=== PATIENT | male | born 1960 | race Caucasian/White ===

== ENCOUNTER 2019-05-28 15:07 | Emergency (ER) | payer BC, SELFPAY ==
[2019-05-28 15:11] VITALS: BP 138/89; PULSE 94; RESP 18; TEMP 37.4; O2SAT 98
--- NOTE | 2019-05-28 15:17 | W.ED.GENAD ---
Discharge Plan Disposition Patient Disposition: HOME Condition: Fair Discharge Details Chief Complaint: EyeProblem Clinical Impression: Conjunctivitis ED Provider: Lourdes John Home Meds and New Rx's Prescriptions: No Action No Known Home Meds RF: 0 Discharge Instructions Instructions: Erythromycin (Into the eye), Conjunctivitis (ED) Additional Instructions: Encourage hydration. Please apply half an inch of the erythromycin ointment to the right eye 5 times daily for the next 5 days. If you develop fever/chills, visual change, increased pain, redness around the eye or the new/worsening symptoms please seek care urgently once again. Otherwise, please follow-up with primary care in 1 week if not improving. All Medical Decision Making Patient is 58-year-old male chief complaint of discharge and swelling to the right eye. Denies any pain in the eye but feels that it is swollen. Denies any visual changes. States that the course the day, he has noted more and more purulent discharge from the eye and increased swelling, particularly lower lid. Denies any fevers or chills. No periorbital tenderness, no periorbital erythema, extra ocular movements are intact without discomfort. Pupils are equal round and reactive. No previous surgeries to the eye. Patient is not wearing contacts or corrective lenses. Findings are most concerning for bacterial conjunctivitis. Patient be treated with erythromycin ointment. He was given return precautions. He lives in [place] but is returning next week, advised that he follow-up there for reevaluation any symptoms persist. All questions and concerns were addressed and he is in agreement this plan. HPI General Mode of arrival: ambulatory. Date/Time Provider Initiated Documentation: 05/28/19 15:11. Limitations to Documentation: no limitations. Information obtained by: patient, family and RN notes reviewed. History of Present Illness 58 year old M presents to the emergency department with the chief complaint of right eye swelling and discharge, described as mild, with intensity rated at 2. Quality is described as aching, and is localized to the eyes. Patient reports no radiation. Patient started experiencing this hour(s) and it has been constant. No relieving factors improve symptom(s), No exacerbating factors reported . Patient notes no other symptoms.. Patient did receive the following treatments prior to arrival, none Related Data Home Medications Medication Instructions Recorded Confirmed Unknown [No Known Home Meds] 05/28/19 05/28/19 Allergies Allergy/AdvReac Type Severity Reaction Status Date / Time No Known Allergies Allergy Unverified 05/28/19 15:15 General Stated Complaint: EyeProblem GREG: 4 Review of Systems Constitutional Constitutional: Reports as per HPI, Denies chills, Denies fatigue, Denies fever(s) and Denies headache(s) Eyes Eyes: Reports as per HPI ENT Ears, Nose, Mouth, and Throat: Denies headache(s) Cardiovascular Cardiovascular: Reports as per HPI, Denies chest pain and Denies lightheadedness Respiratory Respiratory: Denies cough Integumentary/Breasts Skin/Breast: Reports as per HPI, Denies rash, Denies skin pain and Denies skin swelling Neurologic Neurologic: Denies headache(s) and Denies radicular pain Endocrine Endocrine: Denies fatigue PFSH Social History Smoking/Tobacco Use Status: Never Substance use type: does not use Do you feel safe at home: Yes Do you feel safe in your relationship?: Yes Exam Const General: cooperative, healthy appearing, comfortable, no acute distress, well developed and well groomed Nutritional Appearance: average body habitus and well nourished Orientation: alert, awake and oriented x3 HENMT Head: normal to inspection, normocephalic and atraumatic Ears: hearing grossly normal bilaterally and external ears normal General nose exam: external nose normal and nares normal Face and sinus: normal facial exam and face symmetric Mouth: oral mucosae normal, lip normal and moist mucous membranes Eyes Visual Locke: normal visual locke by confrontation Alignment and Position: alignment normal and position normal Periorbital: periorbital findings normal Eyelids: eyelid abnormality right lower eyelid swelling; without inflamed cyst, ectropion, without entropion, without erythema, without foreign bodies, without lacerations, no crusting or scaling of lid margins and nontender Conjunctivae: conjunctival abnormality right conjunctival injection diffuse and discharge purulent Sclera: sclerae normal Pupils: PERRL, normal by confrontation and accommodation normal EOM: EOM intact bilaterally (no pain with EOM) Resp Effort & Inspection: normal respiratory effort, able to speak in complete sentences and no respiratory distress Skin General skin exam: no rashes or lesions noted Neuro General: alert, awake and oriented x3 Cranial Nerves: CN's II-XI intact bilaterally Cognition: normal cognition Speech: speech normal Gait: normal gait Psych Appearance: grossly normal and well kempt Mental Status: mental status grossly normal Speech and Movement: speech and movement normal Course Vital Signs Vital signs: Vital Signs Temperature 37.4 C 05/28/19 15:11 Pulse 94 H 05/28/19 15:11 Respiratory Rate 18 05/28/19 15:11 Blood Pressure 138/89 05/28/19 15:11 Pulse Oximetry 98 05/28/19 15:11 Temperature 37.4 C 05/28/19 15:11 Temperature Source Skin 05/28/19 15:11 Pulse 94 H 05/28/19 15:11 Respiratory Rate 18 05/28/19 15:11 Respiratory Effort 05/28/19 15:15 Blood Pressure 138/89 05/28/19 15:11 Blood Pressure Position Sitting 05/28/19 15:11 Pulse Oximetry 98 05/28/19 15:11 Oxygen Delivery Method Room Air 05/28/19 15:11 Oxygen Flow Rate 0 05/28/19 15:11 Pain Level 2 05/28/19 15:11
[2019-05-28] MEDS: Erythromycin Ophth Oint 3.5 GM TUBE OD (15:47)
== END 2019-05-28 15:45 | disposition home or self-care (01) ==
PROVIDERS: Emergency Provider Physician Assistant
DX: H10.31 Unspecified acute conjunctivitis, right eye (principal)
CPT/HCPCS: 99283

== ENCOUNTER 2019-05-28 22:38 | Emergency (ER) | payer BC, SELFPAY ==
[2019-05-28 22:41] VITALS: BP 130/80; PULSE 88; RESP 18; TEMP 36.7; O2SAT 100
--- NOTE | 2019-05-28 23:16 | W.ED.GENAD ---
Discharge Plan Disposition Patient Disposition: HOME Discharge Details Chief Complaint: EyeProblem Clinical Impression: Conjunctivitis of both eyes Primary Care Provider: None,None ED Provider: Amanuel Alarcon Home Meds and New Rx's Prescriptions: New ciprofloxacin HCl 0.3 % drops See Rx Instructions .ROUTE .COMPLEX Qty: 5 RF: 0 cephalexin [Keflex] 500 mg capsule 500 mg PO QID Qty: 24 RF: 0 Discontinued erythromycin 5 mg/gram (0.5 %) Ointment 1 applic ophthalmic (eye) 5X/DAY RF: 0 Discharge Instructions Instructions: Conjunctivitis (ED) Additional Instructions: Apply ciprofloxacin drops as follows: 2 drops to both eyes every 2 hours for 2 days. Then decrease dosing to 2 drops both eyes every 3-4 hours for 5 days. Total course of 7 days. Take Keflex as prescribed 500 mg tablet by mouth every 6 hours. Discard you contacts, current lens case, solution and any drops. Purchase new case and solution. Do not start using contact lenses again until cleared by your advertising specialist. Please follow-up with an advertising specialist on Thursday. Please contact your primary care physician to arrange follow-up. Be sure to discuss cervical lymphadenopathy with your primary care physician. Return to the ER for any worsening or new concerning symptoms. Referrals: [facility] [Outside] Medical Decision Making 58-year-old male here with eye inflammation bilaterally right greater than left, exam consistent with bacterial conjunctivitis. Patient has full range of extraocular movement without pain. Visual acuity is normal. Patient was seen here earlier started on erythromycin. Patient notes symptoms worsening and now involving left eye. Patient is a contact lens wearer and would benefit from broader antibiotic coverage specifically to treat Pseudomonas. Plan will be to discontinue erythromycin that was started earlier today and start ciprofloxacin drops. I will also add Keflex coverage given right periorbital swelling and erythema. Patient was instructed to throw out his contacts and all contact supplies and to not restart using contacts until cleared to do so by his eye health care technician. I advised him to follow-up with advertising specialist on Thursday for reassessment. He was encouraged to return immediately should have any worsening or new concerning symptoms. PLEASE REMOVE CHARGE FROM PRIOR ED VISIT TODAY INCLUDING FOR ERYTHROMYCIN WHICH I HAVE ADVISED HIM TO DISCARD. Medical Records Medical records reviewed: Yes I reviewed the patient's medical records. HPI General Mode of arrival: ambulatory. Date/Time Provider Initiated Documentation: 05/28/19 22:38. Limitations to Documentation: no limitations. Information obtained by: patient. HPI Narrative: 58-year-old male contact lens wearer presents with chief complaint of eye inflammation. Patient notes this morning he woke up was feeling fine. He went hunting and when he returned around noon he noted that his eye seemed inflamed. Right eye was particularly inflamed. Inflammation is worsened today and is now severe. He notes purulent discharge from his eyes, swelling of his eyes right greater than left. He denies itching. He denies pain. No sensation of foreign body. No visual changes. No pain with movement of his eyes. He does state that he has had a head cold recently with some rhinorrhea. Denies fever. Patient notes no exposure to STDs. He sexually active with only. Related Data Home Medications Medication Instructions Recorded Confirmed cephalexin [Keflex] 500 mg PO QID #24 cap 05/28/19 ciprofloxacin HCl See Rx Instructions .ROUTE 05/28/19 .COMPLEX #5 ml Previous Rx's Medication Instructions Recorded cephalexin [Keflex] 500 mg PO QID #24 cap 05/28/19 ciprofloxacin HCl See Rx Instructions .ROUTE 05/28/19 .COMPLEX #5 ml Allergies Allergy/AdvReac Type Severity Reaction Status Date / Time No Known Allergies Allergy Unverified 05/28/19 22:44 General Stated Complaint: EyeProblem GREG: 4 Review of Systems Constitutional Constitutional: Denies fever(s) Eyes Eyes: Reports as per HPI ENT Ears, Nose, Mouth, and Throat: Reports as per HPI [facility] Social History Smoking/Tobacco Use Status: Never Alcohol Intake: current Alcohol Intake frequency: holidays/special occasions only Drug use: Never Substance use type: does not use Do you feel safe at home: Yes Do you feel safe in your relationship?: Yes Exam Const General: cooperative and no acute distress Orientation: alert and awake [facility] General nose exam: external nose normal and nares normal Mouth: oral mucosae normal Throat: posterior oropharynx normal Eyes Visual Locke: normal visual locke by confrontation Alignment and Position: alignment normal Periorbital: periorbital findings abnormal right periorbital swelling and periorbital erythema (right mild); no tenderness Conjunctivae: conjunctival abnormality bilaterally conjunctival chemosis, conjunctival injection and discharge purulent Pupils: PERRL EOM: EOM intact bilaterally (No pain) Neck Neck: supple Lymphatic: lymphadenopathy (Anterior cervical) Resp Effort & Inspection: normal respiratory effort Auscultation: clear to auscultation bilaterally Cardio Rate: regular rate Rhythm: regular rhythm Neuro General: alert and awake Course Vital Signs Vital signs: Vital Signs Temperature 36.7 C 05/28/19 22:41 Pulse 88 05/28/19 22:41 Respiratory Rate 18 05/28/19 22:41 Blood Pressure 130/80 05/28/19 22:41 Pulse Oximetry 100 05/28/19 22:41 Temperature 36.7 C 05/28/19 22:41 Temperature Source Skin 05/28/19 22:41 Pulse 88 05/28/19 22:41 Respiratory Rate 18 05/28/19 22:41 Respiratory Effort 05/28/19 22:45 Blood Pressure 130/80 05/28/19 22:41 Blood Pressure Position Sitting 05/28/19 22:41 Pulse Oximetry 100 05/28/19 22:41 Oxygen Delivery Method Room Air 05/28/19 22:41 Oxygen Flow Rate 0 05/28/19 22:41 Pain Level 0 05/28/19 22:41
[2019-05-28] MEDS: Ciprofloxacin 0.3% 2.5 ML BTL OU (23:42)
[2019-05-28] MEDS: Cephalexin 500 MG CAP PO (23:44)
[2019-05-28 23:48] VITALS: BP 132/78; PULSE 78; RESP 18; TEMP 36.2; O2SAT 100
== END 2019-05-28 23:50 | disposition home or self-care (01) ==
PROVIDERS: Emergency Provider Student in an Organized Health Care Education/Training Program
DX: H10.33 Unspecified acute conjunctivitis, bilateral (principal)
CPT/HCPCS: 99283